=== PATIENT | female | born 1960 | race Caucasian/White ===

== ENCOUNTER → 2017-01-28 | Outpatient (CLI) | payer OTHER ==
[~2017-01-28] MED LIST: ALAVERT10 M1; ALBUTEROL17 GM INH; ATARAX PO; ATIVAN; CARDIZEM CD300 MG; CHLORTHALIDONE25 MG; LISINOPRIL10 MG; LORTAB 10-5001 EACH PO; MEDROL PO; METFORMIN HCL500 M1; MEVACOR; NO MEDICATIONS; PHENERGAN25 M1 PO; ZITHROMAX PO
--- NOTE | ~2017-01-28 | MR32 ---
[facility] A Service of [facility] RADIOLOGY TEXT RESULTS PATIENT: LOUIS GILBERT LOCATION: [facility] : 62 UNIT #: [id number] AGE: [address]: ELLI CARBALLO APRN SEX: F ORDER DR: [id number] [facility] [address] [place], [place] [address] [id number] O MR#: [id number] Acc #: [id number] NAME: LOUIS GILBERT : 1960 SEX: F STUDY DATE/TIME: 01/28/2017 17:58 UNIT: [facility] ROOM: STUDY DESCRIPTION: MR Cervical Wo Contrast Attending Physician: Elli Carballo Aprn Ordering Physician: Elli Carballo Aprn Primary Care Physician: Jas Hanson M.D. MRI CENTER REPORT This report is preliminary unless electronic signature is present. EXAM Cervical spine MRI, without contrast. DATE OF STUDY 01/28/2017 PROCEDURE Routine cervical spine MRI without contrast. COMPARISON None. CLINICAL HISTORY Right side severe headache and vertigo since December 2012. Right facial arm and leg numbness since that time with episodes of left arm and leg numbness. FINDINGS There is a mid to upper cervical reversal of lordosis but no sim or retrolisthesis. Bone marrow signal is within normal limits and cord signal is normal. The posterior fossa and its contents are normal. At 2-3, the canal and foramina are within normal limits. At 3-4, there is borderline to mild degenerative canal stenosis, and no foraminal stenosis. At 4-5, there is a disc and osteophyte complex with mild canal stenosis and some ventral cord flattening, but no true cord compression and perhaps minimal right and no left foraminal stenosis. At 5-6, there is a disc and osteophyte complex with mild canal stenosis [facility] A Service of [facility] RADIOLOGY TEXT RESULTS PATIENT: LOUIS GILBERT LOCATION: [facility] : 62 UNIT #: [id number] AGE: [address]: ELLI CARBALLO APRN SEX: F ORDER DR: and no cord compression and no foraminal stenosis. At 6-7, there is a disc and osteophyte complex with mild canal stenosis and mild left and no right foraminal stenosis. At 7-1, the canal and foramina are normal. IMPRESSION Multilevel mild degenerative change, but no cord compression or abnormal cord or marrow signal at any level. Areas of foraminal narrowing but minimal canal narrowing at any level. Dictated by... Edgard Cotton M.D. THIS IS AN ELECTRONICALLY VERIFIED REPORT Edgard Cotton M.D. at 02/04/2017 10:42 AM YASMIN/dina TD: 01/29/2017 17:13 JOB #: [id number] MRI CENTER REPORT Page 1 of 1 COPY
--- NOTE | ~2017-01-28 | MR17 ---
[facility] A Service of [facility] RADIOLOGY TEXT RESULTS PATIENT: LOUIS GILBERT LOCATION: [facility] : 62 UNIT #: [id number] AGE: [address]: ELLI CARBALLO APRN SEX: F ORDER DR: [id number] [facility] [address] [place], [place] [address] [id number] O MR#: [id number] Acc #: [id number] NAME: LOUIS GILBERT : 1960 SEX: F STUDY DATE/TIME: 01/28/2017 17:58 UNIT: [facility] ROOM: STUDY DESCRIPTION: MR Brain WWo Contrast Attending Physician: Elli Carballo Aprn Ordering Physician: Elli Carballo Aprn Primary Care Physician: Jas Hanson M.D. MRI CENTER REPORT This report is preliminary unless electronic signature is present. EXAM Brain MRI with and without contrast, 01/28/2017. COMPARISON Brain MRI, 07/09/2014. CLINICAL HISTORY Right side headache and vertigo with right arm and leg and facial numbness since December 2012. FINDINGS There is no MR evidence of acute ischemia or other restricted diffusion. There is no evidence of intracranial hemorrhage or mass, hydrocephalus or extraaxial fluid collection. Bone marrow signal is within normal limits. Postcontrast images show no mass or abnormal enhancement. In addition to mild nonspecific white matter change, there is a left posterior frontal cortical encephalomalacia involving both the motor and sensory strip near the vertex. This shows slight progression and maturation since the prior study, and there is a stable small area of right occipital encephalomalacia as well. No new or acute abnormality is seen. Postcontrast images show no mass or abnormal enhancement. IMPRESSION Redemonstrated left posteromedial frontal and right occipital cortical encephalomalacia. No acute abnormality. No substantial interval change since 07/09/2014. Dictated by... Edgard Cotton M.D. [facility] A Service [facility][1] RADIOLOGY TEXT RESULTS PATIENT: LOUIS GILBERT LOCATION: [facility] : 62 UNIT #: [id number] AGE: [address]: ELLI CARBALLO APRN SEX: F ORDER DR: THIS IS AN ELECTRONICALLY VERIFIED REPORT Edgard Cotton M.D. at 02/04/2017 10:42 AM YASMIN/ella TD: 01/29/2017 17:22 JOB #: [id number] MRI CENTER REPORT Page 1 of 1 COPY
[2017-01-28 18:01] LABS: POC - CREATININE 0.88 mg/dL (0.44-1.03); POC - GFR >60.0 mL/min (>60)
== END | disposition home or self-care (01) ==
LOC: CMRI 17:10
PROVIDERS: Nurse Practitioner Family
DX: G44.85 Primary stabbing headache (principal); M48.02 Spinal stenosis, cervical region; M25.78 Osteophyte, vertebrae; G93.89 Other specified disorders of brain; M54.81 Occipital neuralgia
CPT/HCPCS: 70553; 72141; 82565; A9577